=== PATIENT | female | born 1955 | race Asian ===

== ENCOUNTER 2022-08-29 22:55 | Inpatient (IN) | payer OTHER ==
--- OUTSIDE RECORDS SUMMARY | 2022-08-29 22:58 | XMS REPORT | Continuity of Care Document ---
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 Allergies, Adverse Reactions, Alerts This patient has no known allergies or adverse reactions. Social History Social Habit Start Date Stop Date Quantity Comments Source Gender identity Jossue Loza ybold - External Sexual orientation Jossue Honeycuttold - External Alcohol intake 2022-08-12 2022-08-12 Lifetime Jossue Lozadianne bold 00:00:00 00:00:00 non-drinker - External (finding) Tobacco use and 2022-07-22 2022-07-22 Smokeless tobacco Ke sharonda Lozaybold exposure 00:00:00 00:00:00 non-user - External History of Social 2022-07-22 2022-07-22 Jossue Lozaybold function 00:00:00 00:00:00 - External Sex Ass[birth year] Jossue Loza ybold 00:00:00 00:00:00 - External Smoking Status Start Date Stop Date Source Never smoked tobacco Jossue Lzoayb old - External Medications Ordered Filled Start Stop Current Ordering Indication Dosage Frequency Signature Comments Components Source Medication Medication Date Date Medication? Clinician (SIG) Name Name Rosuvastati Yes [id number] 10mg Take 1 Jossue pedroza Calcium 4-07 tablet (10 Seyb old 10 MG oral 00:00: mg total) - Tablet 00 by mouth Externa daily l Losartan 2022- No 50mg Take 1 Jossue Potassium 4-05 04-05 tablet (50 Sey bold (COZAAR) 50 09:36: 00:00 mg total) - MG oral 06 :00 by mouth Externa Tablet daily l Metformin 2022- No 850mg Take 1 Anabel ey HCl 4-05 04-05 tablet Seybold (Glucophage 09:35: 00:00 (850 mg - ) 850 MG 03 :00 total) by Clothing Sales Assistant a oral Tablet mouth in l the morning and 1 tablet (850 mg total) in the evening. Take with meals. Losartan Yes [id number] 1{tbl} Take 1 K elsey Potassium-H 4-05 tablet by Sey bold CTZ 00:00: mouth - 100-12.5 MG 00 daily Externa oral Tablet l Metformin Yes [id number] 1000mg Take 1 Jossue HCl 1000 MG 4-05 tablet Seybol d oral Tablet 00:00: (1,000 mg - 00 total) by Externa mouth in l the morning and 1 tablet (1,000 mg total) in the evening. Take with meals. Losartan Yes [id number] 1{tbl} Take 1 K elsey Potassium-H 4-05 tablet by Sey bold CTZ 00:00: mouth - 100-12.5 MG 00 daily Externa oral Tablet l Metformin Yes [id number] 1000mg Take 1 Jossue HCl 1000 MG 4-05 tablet Seybol d oral Tablet 00:00: (1,000 mg - 00 total) by Externa mouth in l the morning and 1 tablet (1,000 mg total) in the evening. Take with meals. Vital Signs Vital Name Observation Time Observation Value Comments Source Systolic blood 2022-08-12 13:48:00 138 mm[Hg] Jossue Ha - pressure External Diastolic blood 2022-08-12 13:48:00 72 mm[Hg] Bibiana Ha - pressure External Heart rate 2022-08-12 13:48:00 93 /min Jossue nelsonbold - External Body temperature 2022-08-12 13:48:00 36.17 Татьяна Anabel nelson Seybold - External Respiratory rate 2022-08-12 13:48:00 14 /min Anabel ey Seybold - External Body height 2022-08-12 13:48:00 160 cm Jossue Hooper eybold - External Body weight 2022-08-12 13:48:00 47.628 kg Jossue Hooper eybold - External BMI 2022-08-12 13:48:00 18.60 kg/m2 Jossue S eybold - External Systolic blood 2022-07-23 13:57:00 164 mm[Hg] Jossue Seybold - pressure External Diastolic blood 2022-07-23 13:57:00 80 mm[Hg] Atiliose y Seybold - pressure External Heart rate 2022-07-23 13:57:00 77 /min Jossue Hooper eybold - External Body temperature 2022-07-23 13:57:00 36.61 Татьяна Anabel ey Seybold - External Respiratory rate 2022-07-23 13:57:00 16 /min Anabel ey Seybold - External Body height 2022-07-23 13:57:00 160 cm Jossue Hooper eybold - External Body weight 2022-07-23 13:57:00 47.9 kg Jossue Hooper eybold - External BMI 2022-07-23 13:57:00 18.71 kg/m2 Jossue Hooper eybold - External Oxygen saturation in 2022-07-23 13:57:00 99 /min Jossue Ha - Arterial blood by External Pulse oximetry Procedures This patient has no known procedures. Encounters Start End Encounter Admission Attending Care Care Encounter Source Date/Time Date/Time Type Type Clinicians Facility Department ID 2022-11-11 2022-11-11 Outpatient JOSSUE ANTOINE [id number] Jossue 08:30:00 08:30:00 GABRIEL Seybol d 2022-08-29 2022-08-29 Outpatient JOSSUE MAGANA [id number] Jossue 00:00:00 00:00:00 SÁNCHEZ Seybol d 2022-08-22 2022-08-22 Outpatient JOSSUE MAGANA [id number] Jossue 00:00:00 00:00:00 SÁNCHEZ Seybol d 2022-08-12 2022-08-12 Outpatient LAB90 JOSSUE MARCUM [id number] Jossue 09:30:00 09:30:00 Seybol d 2022-08-12 2022-08-12 Outpatient JOSSUE MAGANA [id number] Jossue 08:45:00 08:45:00 SÁNCHEZ Seybol d 2022-07-25 2022-07-25 Outpatient JOSSUE MAGANA [id number] Jossue 00:00:00 00:00:00 SÁNCHEZ Seybol d 2022-07-23 2022-07-23 Outpatient LAB90 JOSSUE MARCUM [id number] Jossue 10:00:00 10:00:00 Seybol d 2022-07-23 2022-07-23 Outpatient JOSSUE MAGANA [id number] Jossue 09:00:00 09:00:00 SÁNCHEZ Seybol d 2022-07-22 2022-07-22 Outpatient JOSSUE MAGANA [id number] Jossue 09:00:00 09:00:00 SÁNCHEZ Seybol d Results This patient has no known results.
[2022-08-29] MEDS ORDERED: ONDANSETRON 4 MG/2 ML VIAL ONE (23:21)
[2022-08-29] MEDS ORDERED: NA CHLORIDE 0.9% 1,000 ML ONE (23:21)
[2022-08-30 01:11] LABS: Absolute Lymphocytes (CBC) 1.8 K/uL (0.7-4.9); Hematocrit 29.1 % (36.0-45.0); Lymphocytes % 17.7 % (15.3-44.8); MCV 84.7 fL (80-100); MPV 7.9 fL (7.6-11.3); RBC Red Blood Cell Count 3.44 M/uL (3.86-4.86)
[2022-08-30 01:22] LABS: Renal Epithelial <5 /HPF (None Seen); Specific Gravity 1.006 (1.005-1.030); Urine Bacteria None Seen /HPF (<20); Urine Bilirubin NEGATIVE (Negative); Urine Blood Negative (Negative); Urine Clarity Clear (Clear); Urine Color Colorless (Yellow); Urine Glucose NEGATIVE (Negative); Urine Mucus Slight /HPF (None Seen); Urine Protein NEGATIVE (Negative); Urine RBC <5 /HPF (None Seen); Urine Urobilinogen Normal (Normal); Urine pH 5.5 (5.0-7.0)
[2022-08-30 01:22] LABS: Albumin 3.7 g/dL (3.4-5.0); Bilirubin Total 0.3 mg/dL (0.2-1.0); Potassium 4.5 mEq/L (3.5-5.1); Protein, Total 8.1 g/dL (6.4-8.2); Troponin High Sensitivity 8.2 pg/mL (<58.9)
--- NOTE | 2022-08-30 03:20 | EDPHYS ---
Physician Documentation [facility] Name: Adriana Day Age: 66 yrs Sex: Female : 1955 Arrival Date: 08/29/2022 Time: 22:55 Bed 20 Private MD: ED Physician Shamir Al HPI: 08/29 23:41 This 66 yrs old Female presents to ER via Ambulatory with complaints of rn Nausea/Vomiting, High Blood Pressure. 23:41 The patient presents to the emergency department with nausea, vomiting. Onset: The rn symptoms/episode began/occurred 3 day(s) ago. Possible causes: unknown. The symptoms are aggravated by nothing. The symptoms are alleviated by food . Associated signs and symptoms: Pertinent positives: nausea, vomiting, Pertinent negatives: abdominal pain, diarrhea, fever, GI bleeding. Severity of symptoms: At their worst the symptoms were moderate in the emergency department the symptoms are unchanged. The patient has not experienced similar symptoms in the past. The patient has not recently seen a physician. Family reports nausea/vomiting for 3 days, assoc with palpitations and heart racing. No fever. No blood in stool. No dark stool. No hematemesis. . Historical: - Allergies: 23:16 No Known Allergies; aa9 - PMHx: 23:16 Hypertensive disorder; aa9 - PSHx: 23:16 None; aa9 - Immunization history:: Client reports receiving the 2nd dose of the Covid vaccine. - Social history:: Smoking status: Patient denies any tobacco usage or history of. - Family history:: not pertinent. - Hospitalizations: : No recent hospitalization is reported. ROS: 23:41 Constitutional: Negative for fever, chills, and weight loss, Eyes: Negative for injury, rn pain, redness, and discharge, Neck: Negative for injury, pain, and swelling, Cardiovascular: Negative for chest pain, palpitations, and edema, Respiratory: Negative for shortness of breath, cough, wheezing, and pleuritic chest pain, Abdomen/GI: + nausea/vomiting Back: Negative for injury and pain, MS/Extremity: Negative for injury and deformity, Skin: Negative for injury, rash, and discoloration, Neuro: Negative for headache, weakness, numbness, tingling, and seizure. Exam: 23:41 Constitutional: This is a well developed, well nourished patient who is awake, alert, rn and in no acute distress. Ambulatory to room without difficulty. Head/Face: Normocephalic, atraumatic. Eyes: Pupils equal round and reactive to light, extra-ocular motions intact. Lids and lashes normal. Conjunctiva and sclera are non-icteric and not injected. Cornea within normal limits. Periorbital areas with no swelling, redness, or edema. Neck: Trachea midline, no masses palpated, and no cervical lymphadenopathy. Supple, full range of motion without nuchal rigidity, or vertebral point tenderness. No Meningismus. Cardiovascular: Regular rate and rhythm. No pulse deficits. Respiratory: Lungs have equal breath sounds bilaterally, clear to auscultation. No rales, rhonchi or wheezes noted. No increased work of breathing, no retractions or nasal flaring. Abdomen/GI: soft, non-tender Skin: Warm, dry MS/ Extremity: Pulses equal, no cyanosis. Neuro: Awake and alert, GCS 15, oriented to person, place, time, and situation. Cranial nerves II-XII grossly intact. Motor strength 5/5 in all extremities. Sensory grossly intact. Cerebellar exam normal. Normal gait. 08/30 00:15 ECG was reviewed by the Attending Physician. rn Vital Signs: 08/29 23:15 BP 199 / 69; Pulse 73; Resp 18; Temp 98.8; Pulse Ox 100% on R/A; aa9 23:17 Weight 45.36 kg (R); Height 5 ft. 4 in. (R); aa9 23:35 BP 185 / 58; Pulse 71; Resp 18; Pulse Ox 100% ; aa9 23:53 BP 182 / 65; Pulse 68; Resp 17 S; Pulse Ox 100% ; aa9 08/30 00:50 BP 148 / 55; Pulse 65; Resp 18 S; Pulse Ox 100% ; aa9 01:00 BP 160 / 62; Pulse 65; Resp 17 S; Pulse Ox 100% ; aa9 01:15 BP 150 / 63; Pulse 66; Resp 17 S; Pulse Ox 100% ; aa9 02:12 BP 141 / 48; Pulse 75; Pulse Ox 98% ; vc1 08/29 23:17 Body Mass Index 17.16 (45.36 kg, 162.56 cm) aa9 MDM: 08/29 23:03 Patient medically screened. rn 08/30 03:18 Differential diagnosis: Nonspecific abd pain, gastritis, cholecystitis, pancreatitis, rn appendicitis, diverticulitis, viral gastroenteritis, gastroenteritis. Data reviewed: vital signs, nurses notes, lab test result(s), radiologic studies, CT scan, and as a result, I will admit patient. Consideration of Admission/Observation Patient was admitted/placed on observation. Escalation of care including admission/observation considered. Management of patient was discussed with the following: Hospitalist: . I considered the following discharge prescriptions or medication management in the emergency department Medications were administered in the Emergency Department. See MAR. Counseling: I had a detailed discussion with the patient and/or guardian regarding: the historical points, exam findings, and any diagnostic results supporting the discharge/admit diagnosis, lab results, radiology results, the need for further work-up and treatment in the hospital. Response to treatment: the patient's symptoms have mildly improved after treatment, and as a result, I will admit patient. 08/29 23:13 Order name: Basic Metabolic Panel rn 08/29 23:13 Order name: CBC with Diff; Complete Time: 01:23 08/29 23:13 Order name: NT PRO-BNP; Complete Time: 01:23 08/29 23:13 Order name: Troponin HS; Complete Time: : 08/29 23:13 Order name: CMP; Complete Time: 01:23 rn 08/29 23:13 Order name: Lipase; Complete Time: 01:23 rn 08/29 23:13 Order name: Urinalysis w/ reflexes; Complete Time: 01:23 08/29 23:13 Order name: Flu; Complete Time: 00:14 rn 08/29 23:13 Order name: COVID-19 SARS RT PCR; Complete Time: 00:14 rn 08/29 23:13 Order name: XRAY Chest (1 view) rn 08/29 23:13 Order name: CT Aorta for Dissection rn 08/29 23:13 Order name: CT Head Brain wo Cont rn 08/29 23:13 Order name: EKG; Complete Time: 23:14 rn 08/29 23:13 Order name: Cardiac monitoring; Complete Time: 23:34 rn 08/29 23:13 Order name: EKG - Nurse/Tech; Complete Time: 00:15 rn 08/29 23:13 Order name: IV Saline Lock; Complete Time: 23:44 rn 08/29 22: Order name: Labs collected and sent; Complete Time: :34 rn 08/29 22: Order name: O2 Per Protocol; Complete Time: rn 08/29 22: Order name: O2 Sat Monitoring; Complete Time: :34 rn EC:15 Rate is 72 beats/min. Rhythm is regular. QRS [place] is Normal. MS interval is normal. QRS rn interval is normal. QT interval is normal. No Q waves. T waves are Normal. No ST changes noted. Clinical impression: Normal ECG. Interpreted by me. Reviewed by me. Administered Medications: 08/29 23:44 Drug: NS 0.9% IV 1000 ml Route: IV; Rate: 1 bolus; Site: left hand; aa9 08/30 03:40 Follow up: Response: No adverse reaction; IV Status: Completed infusion; IV Intake: aa9 1000ml 08/29 23:44 Drug: Ondansetron IVP 4 mg Route: IVP; Site: left hand; aa9 08/30 03:40 Follow up: Response: No adverse reaction aa9 03:32 Drug: Pantoprazole IVP 40 mg Route: IVP; Site: left upper arm; aa9 03:40 Follow up: Response: No adverse reaction aa9 Disposition Summary: 08/30/22 03:20 Hospitalization Ordered Hospitalization Status: Observation rn Provider: Ross Lopez rn Condition: Stable rn Problem: new rn Symptoms: have improved rn Bed/Room Type: Standard rn Location: Intensive Care Unit(08/30/22 03:39) cg Room Assignment: 3-(08/30/22 03:39) cg Diagnosis - Vomiting, unspecified rn - Dehydration rn - Hypo-osmolality and hyponatremia rn - Infectious gastroenteritis and colitis, unspecified rn Forms: - Medication Reconciliation Form rn - SBAR form rn Signatures: Dispatcher [employer] EDShamir Olvera MD MD rn Attema, Lee, FNP-C FNP-Annamaria Mccauley RN RN Alexandrea Hannah RN RN aa9 Corrections: (The following items were deleted from the chart) 03:39 03:20 Telemetry/MedSurg (observation) rn cg 03:39 03:20 rn cg
--- NOTE | 2022-08-30 03:20 | ER ---
Nurse's Notes [facility] Name: Adriana Day Age: 66 yrs Sex: Female : 1955 Arrival Date: 08/29/2022 Time: 22:55 Bed 20 Private MD: Diagnosis: Vomiting, unspecified;Dehydration;Hypo-osmolality and hyponatremia;Infectious gastroenteritis and colitis, unspecified Presentation: 08/29 23:15 Chief complaint: Patient states: vomiting the last three days, high blood pressure and aa9 fatigue. Coronavirus screen: Vaccine status: Patient reports receiving the 2nd dose of the covid vaccine. pfizer. Ebola Screen: No symptoms or risks identified at this time. Initial Sepsis Screen: Does the patient meet any 2 criteria? No. Patient's initial sepsis screen is negative. Does the patient have a suspected source of infection? No. Patient's initial sepsis screen is negative. Risk Assessment: Do you want to hurt yourself or someone else? Patient reports no desire to harm self or others. Onset of symptoms was August 29, 2022. 23:15 Method Of Arrival: Ambulatory aa9 23:15 Acuity: JESSICA 2 aa9 Triage Assessment: 23:16 General: Appears uncomfortable, slender, Behavior is calm, cooperative. Neuro: Level of aa9 Consciousness is awake, alert, obeys commands, Oriented to person, place, time, situation. Cardiovascular: Patient's skin is warm and dry. Respiratory: Airway is patent Respiratory effort is even, unlabored. GI: Reports nausea, vomiting, Patient currently denies diarrhea. : No signs and/or symptoms were reported regarding the genitourinary system. Derm: Skin is intact, is fragile, is thin. Historical: - Allergies: 23:16 No Known Allergies; aa9 - PMHx: 23:16 Hypertensive disorder; aa9 - PSHx: 23:16 None; aa9 - Immunization history:: Client reports receiving the 2nd dose of the Covid vaccine. - Social history:: Smoking status: Patient denies any tobacco usage or history of. - Family history:: not pertinent. - Hospitalizations: : No recent hospitalization is reported. Screenin:54 Abuse screen: Denies threats or abuse. Denies injuries from another. aa9 08/30 02:55 [facility] ED Fall Risk Assessment (Adult) History of falling in the last 3 months, kd3 including since admission No falls in past 3 months (0 pts) Confusion or Disorientation No (0 pts) Intoxicated or Sedated No (0 pts) Impaired Gait No (0 pts) Mobility Assist Device Used No (0 pt) Altered Elimination No (0 pt) Score/Fall Risk Level 0 - 2 = Low Risk Oriented to surroundings, Maintained a safe environment, Assessed \T\ reinforced patient's understanding of fall precautions. Nutritional screening: Has had N/V for 3 or more days. Tuberculosis screening: No symptoms or risk factors identified. Assessment: 08/29 23:35 General: Appears in no apparent distress. uncomfortable, Behavior is calm, cooperative. [facility] 23:56 Reassessment: Patient appears in no apparent distress at this time. Patient and/or [facility] family updated on plan of care and expected duration. Pain level reassessed. Patient is alert, oriented x 3, equal unlabored respirations, skin warm/dry/pink. Lesli RN at bedside attempting IV site and blood recollection. Pain: Denies pain. Cardiovascular: Patient's skin is warm and dry. Respiratory: Airway is patent Respiratory effort is even, unlabored. GI: Reports nausea, Patient currently denies diarrhea. Derm: Skin is intact, is fragile, is thin. 08/30 00:15 Reassessment: Patient appears in no apparent distress at this time. Lotus MATTSON at [facility] bedside attempting IV insertion and blood recollection. 00:32 Reassessment: Patient appears in no apparent distress at this time. Mark Dunham at [facility] bedside attempting IV insertion and blood recollection. 01:26 Reassessment: Patient appears in no apparent distress at this time. Patient and/or 3 family updated on plan of care and expected duration. Pain level reassessed. Patient is alert, oriented x 3, equal unlabored respirations, skin warm/dry/pink. 02:40 Reassessment: Patient appears in no apparent distress at this time. Patient and/or 3 family updated on plan of care and expected duration. Pain level reassessed. Patient is alert, oriented x 3, equal unlabored respirations, skin warm/dry/pink. 03:39 Reassessment: Patient appears in no apparent distress at this time. pt ambulated to [facility] restroom independently. 03:45 Reassessment: Patient appears in no apparent distress at this time. attempted to call aa9 report. Vital Signs: 08/29 23:15 BP 199 / 69; Pulse 73; Resp 18; Temp 98.8; Pulse Ox 100% on R/A; aa9 23:17 Weight 45.36 kg (R); Height 5 ft. 4 in. (R); aa9 23:35 BP 185 / 58; Pulse 71; Resp 18; Pulse Ox 100% ; aa9 23:53 BP 182 / 65; Pulse 68; Resp 17 S; Pulse Ox 100% ; aa9 08/30 00:50 BP 148 / 55; Pulse 65; Resp 18 S; Pulse Ox 100% ; aa9 01:00 BP 160 / 62; Pulse 65; Resp 17 S; Pulse Ox 100% ; aa9 01:15 BP 150 / 63; Pulse 66; Resp 17 S; Pulse Ox 100% ; aa9 02:12 BP 141 / 48; Pulse 75; Pulse Ox 98% ; vc1 08/29 23:17 Body Mass Index 17.16 (45.36 kg, 162.56 cm) aa9 ED Course: 08/29 22:59 Patient arrived in ED. jj6 23:03 Shamir Al MD is Attending Physician. rn 23:12 Alexandrea Harrison, TWILA is Primary Nurse. aa9 23:16 Triage completed. aa9 23:17 Arm band placed on right wrist. aa9 23:30 Missed attempt(s): 20 gauge in right antecubital area. Bleeding controlled, band aid aa9 applied, catheter tip intact. 23:34 COVID-19 SARS RT PCR Sent. aa9 23:34 Flu Sent. aa9 23:34 CMP Sent. aa9 23:34 Lipase Sent. aa9 23:34 Urinalysis w/ reflexes Sent. aa9 23:35 CBC with Diff Sent. aa9 23:35 NT PRO-BNP Sent. aa9 23:35 Troponin HS Sent. aa9 23:41 XRAY Chest (1 view) In Process Unspecified. EDMS 23:45 Flu Sent. aa9 23:45 COVID-19 SARS RT PCR Sent. aa9 23:45 Inserted saline lock: 22 gauge in left hand, using aseptic technique. aa9 08/30 01:21 CMP Sent. aa9 01:21 Lipase Sent. aa9 02:16 CT Aorta for Dissection In Process Unspecified. EDMS 02:16 CT Head Brain wo Cont In Process Unspecified. EDMS 02:47 Basic Metabolic Panel Sent. kd3 02:55 Patient has correct armband on for positive identification. Placed in gown. Bed in low kd3 position. Side rails up X2. Adult w/ patient. Pulse ox on. NIBP on. 03:19 Ross Lopez MD is Hospitalizing Provider. rn 03:39 No provider procedures requiring assistance completed. Patient admitted, IV remains in aa9 place. Administered Medications: 08/29 23:44 Drug: NS 0.9% IV 1000 ml Route: IV; Rate: 1 bolus; Site: left hand; aa9 08/30 03:40 Follow up: Response: No adverse reaction; IV Status: Completed infusion; IV Intake: aa9 1000ml 08/29 23:44 Drug: Ondansetron IVP 4 mg Route: IVP; Site: left hand; aa9 08/30 03:40 Follow up: Response: No adverse reaction aa9 03:32 Drug: Pantoprazole IVP 40 mg Route: IVP; Site: left upper arm; aa9 03:40 Follow up: Response: No adverse reaction aa9 Medication: 03:39 VIS not applicable for this client. aa9 Intake: 03:40 IV: 1000ml; Total: 1000ml. aa9 Outcome: 03:20 Decision to Hospitalize by Provider. rn 03:39 Condition: stable aa9 04:06 Admitted to ICU accompanied by nurse, room 3, with chart, Report called to grayson aa9 04:06 Instructed on the need for admit. 04:06 Patient left the ED. aa9 Signatures: Dispatcher [employer] EDShamir Olvera MD MD rn Jeffries, Jennifer [id number] Negrita Mckee RN RN kd3 Lotus Cullen RN RN vc1 Alexandrea Harrison RN RN aa9 Corrections: (The following items were deleted from the chart) 00:34 00:32 Reassessment: Patient appears in no apparent distress at this time. Mark Dunham at aa9 bedside attempting IV insertion and blood recollection aa9
--- NOTE | 2022-08-30 03:33 | P.HP ---
Certification for Inpatient Patient admitted to: Inpatient With expected LOS: >2 Midnights Patient will require the following post-hospital care: None Practitioner: I am a practitioner with admitting privileges, knowledge of patient current condition, hospital course, and medical plan of care. Services: Services provided to patient in accordance with Admission requirements found in Title 42 Section 412.3 of the Code of Federal Regulations Patient History Date of Service: 08/30/22 Reason for admission: Hypernatremia History of Present Illness: 66-year-old female with history of hypertension, tjq-hdyvaew-wdrnvybrk diabetes presents emerged department chief complaint of nausea/vomiting for the last 3 days. She was evaluated in the emergency department her labs are significant for hyponatremia sodium 121 chloride 90 creatinine 1.35 GFR 43 glucose 130 lipase 198 hemoglobin 10.2 hematocrit 29.1. Abdomen nontender on exam CT aorta for dissection performed which revealed thickening of the stomach, proximal small intestine suggestive of gastroenteritis. She was given IV fluids in ED, ED provider wishes to admit for further evaluation and management of nausea/vomiting/hyponatremia. - Past Medical/Surgical History -: Hypertension -: diabetes mellitus type [id number]-[id number] -: none Psychosocial/ Personal History: Lives at home with her daughters - Family History Family History: Reviewed- Non-Contributory - Social History Smoking Status: Never smoker Alcohol use: No CD- Drugs: No Caffeine use: Yes Place of Residence: Home Review of Systems 10-point ROS is otherwise unremarkable Gastrointestinal: Nausea, Vomiting, Abdominal Pain Physical Examination - Physical Exam General: Alert, In no apparent distress, Oriented x3 HEENT: Atraumatic, PERRLA, Mucous membr. moist/pink, EOMI, Sclerae nonicteric Neck: Supple, 2+ carotid pulse no bruit, No LAD, Without JVD or thyroid ab normality Respiratory: Clear to auscultation bilaterally, Normal air movement Cardiovascular: Regular rate/rhythm, Normal S1 S2 Capillary refill: <2 Seconds Gastrointestinal: Normal bowel sounds, No tenderness Musculoskeletal: No tenderness Integumentary: No rashes Neurological: Normal gait, Normal speech, Normal strength at 5/5 x4 extr, Normal tone, Normal affect - Studies Laboratory Data (last 24 hrs) 08/30/22 00:55: WBC 10.40, Hgb 10.2 L, Hct 29.1 L, Plt Count 259 08/30/22 00:55: Sodium 121 L, Potassium 4.5, BUN 33 H, Creatinine 1.35 H, Glucose 130 H, Total Bilirubin 0.3, AST 21, ALT 23, Alkaline Phosphatase 93, Lipase 198 H Microbiology Data (last 24 hrs): 08/29/22 22:29 Nasopharnyx Influenza Type A Antigen Screen - Final 08/29/22 22:29 Nasopharnyx Influenza Type B Antigen Screen - Final Assessment and Plan - Plan Assessment: Nausea/vomiting secondary to enteritis Moderate hyponatremiasuspect hypovolemic Hypertension diabetes mellitus type [id number] Plan: Nausea/vomiting secondary to enteritis Clear liquid diet, gentle IV fluids, recheck sodium later today. We will treat with Protonix patient complaining of reflux-like symptoms with nausea/vomiting. Moderate hyponatremiasuspect hypovolemic Continue gentle IV fluids, monitor chemistry closely. Suspect hypovolemic related to nausea/vomiting for last 3 days. Hypertension Obtain and continue home medications as appropriate, hold any diuretics/HCTZ if patient is taking. diabetes mellitus type [id number]-anvyxynzs ACHS Accu-Chek, sliding scale insulin. DVT PPX: Lovenox Code status:full Discharge Plan: Home Plan to discharge in: 48 Hours - Advance Directives Does patient have a Living Will: No Does patient have a Durable POA for Healthcare: No - Code Status/Comfort Care Code Status Assessed: Yes (full code) Critical Care: No Time Spent Managing Pts Care (In Minutes): 55
[2022-08-30] MEDS ORDERED: PANTOPRAZOLE 40 MG INJ ONE (03:34)
[2022-08-30] MEDS ORDERED: SODIUM CHLORIDE 0.9% 10ML INJ IV PRN (03:58)
[2022-08-30] MEDS ORDERED: ONDANSETRON 4 MG/2 ML VIAL IV PRN (03:58)
[2022-08-30] MEDS ORDERED: NA CHLORIDE 0.9% 1,000 ML IV SCH ×2 (04:00→23:45)
[2022-08-30 05:40] LABS: UR SODIUM 43 mmol/L (27-287)
[2022-08-30 05:41] LABS: UR POTASSIUM < 6.0 mmol/L (20-40)
[2022-08-30 06:22] LABS: Potassium 4.2 mEq/L (3.5-5.1); Thyroid Stimulating Hormone 0.634 uIU/mL (0.358-3.740)
[2022-08-30 06:34] LABS: Magnesium 1.6 mg/dL (1.6-2.4)
[2022-08-30] MEDS: INSULIN -REGULAR HUMAN 50 UNIT/0.5 ML ML SQ SCH ×4 (07:30→20:28)
[2022-08-30] MEDS ORDERED: PANTOPRAZOLE 40 MG INJ IVP SCH (09:00)
[2022-08-30] MEDS ORDERED: MAGNESIUM SULFATE 1 gm IVPB 1 GM/100 ML BAG IV ONE (09:00)
[2022-08-30] MEDS: ENOXAPARIN 30 MG/0.3 ML SQ SCH (09:02)
[2022-08-30 12:56] LABS: Potassium 4.7 mEq/L (3.5-5.1)
[2022-08-30] MEDS ORDERED: NACHLORIDE 0.45% 1,000 ML IV SCH (14:16)
[2022-08-30 17:27] LABS: Magnesium 2.2 mg/dL (1.6-2.4); Phosphorus 3.4 mg/dL (2.5-4.9); Potassium 4.5 mEq/L (3.5-5.1)
[2022-08-30 17:38] LABS: Thyroid Stimulating Hormone 0.717 uIU/mL (0.358-3.740); Uric Acid 7.7 mg/dL (2.6-6.0)
[2022-08-30] MEDS ORDERED: DESMOPRESSIN 4 MCG/ML AMP IV ONE (17:58)
[2022-08-30] MEDS ORDERED: D5W 1,000 ML IV SCH (18:00)
[2022-08-30 18:55] LABS: Specific Gravity 1.017 (1.005-1.030); Urine Bilirubin NEGATIVE (Negative); Urine Blood Negative (Negative); Urine Clarity Clear (Clear); Urine Color Colorless (Yellow); Urine Glucose NEGATIVE (Negative); Urine Protein NEGATIVE (Negative); Urine Urobilinogen Normal (Normal); Urine pH 5.5 (5.0-7.0)
--- NOTE | 2022-08-30 19:06 | RAD REPORT ---
EXAM DESCRIPTION: US - Renal Ultrasound-Complete - 08/30/2022 6:56 pm CLINICAL HISTORY: renal failure COMPARISON: No comparisons FINDINGS: Both kidneys are normal in size, shape and echotexture. The right kidney measures 8.3 cm. No hydronephrosis, focal mass or perinephric fluid. The left kidney measures 8.4 cm. No hydronephrosis, focal mass or perinephric fluid. The urinary bladder is incompletely distended without gross abnormality seen. IMPRESSION: Unremarkable renal sonogram. No evidence of hydronephrosis.
[2022-08-30 23:32] LABS: Potassium 4.1 mEq/L (3.5-5.1)
[2022-08-30] MEDS ORDERED: SODIUM CHLORIDE 1 GM TAB PO ONE (23:42)
[2022-08-31] MEDS: ACETYLCYST 20% 800 MG/4 ML VIAL PO SCH ×3 (00:04→20:04)
[2022-08-31 04:54] VITALS: BMI 18.5
[2022-08-31 05:02] LABS: Absolute Lymphocytes (CBC) 2.5 K/uL (0.7-4.9); Hematocrit 24.9 % (36.0-45.0); Lymphocytes % 32.6 % (15.3-44.8); MCV 85.3 fL (80-100); RBC Red Blood Cell Count 2.92 M/uL (3.86-4.86)
[2022-08-31 05:14] LABS: Magnesium 1.8 mg/dL (1.6-2.4); Potassium 3.9 mEq/L (3.5-5.1)
[2022-08-31] MEDS ORDERED: MAGNESIUM SULFATE 1 gm IVPB 1 GM/100 ML BAG IV ONE (05:42)
[2022-08-31] MEDS ORDERED: POTASSIUM CL SA 10 MEQ TAB PO ONE (05:42)
[2022-08-31] MEDS ORDERED: SODIUM CHLORIDE 1 GM TAB PO ONE ×2 (06:27→16:00)
[2022-08-31] MEDS: INSULIN -REGULAR HUMAN 50 UNIT/0.5 ML ML SQ SCH ×4 (07:30→20:01)
[2022-08-31] MEDS: ENOXAPARIN 30 MG/0.3 ML SQ SCH (08:06)
[2022-08-31] MEDS: PANTOPRAZOLE 40 MG INJ IVP SCH (08:07)
[2022-08-31] MEDS: SODIUM CHLORIDE 1 GM TAB PO ONE (08:07)
--- NOTE | 2022-08-31 10:03 | P.DS ---
Admission Date: 08/30/22 Discharge Date: 08/31/22 Disposition: ROUTINE DISCHARGE Discharge Condition: FAIR Reason for Admission: Hyponatremia diarrhea vomiting Brief History of Present Illness: Patient is 66 years of age admitted with nausea vomiting diarrhea hyponatremia Hospital Course: Admitted to the of the hospital did well her creatinine did increase suspect is from the contrast at the time of discharge patient was tolerating a diet no new complaints patient does not speak any Comoran continues to remain mildly hyponatremic on her home medication I stopped her hydrochlorothiazide patient is on losartan and hydrochlorothiazide at home have basic chemistry checked in a week also mildly anemic probably from her underlying chronic renal failure CT scan shows nonspecific enteritis ultrasound of the kidneys was normal vital signs stable at discharge chest clear abdomen soft oxygenation satisfactory Vital Signs/Physical Exam: Temp Pulse Resp BP Pulse Ox 97.1 F 62 18 142/55 H 98 08/30/22 20:00 08/31/22 04:00 08/31/22 04:00 08/31/22 04:00 08/30/22 20:00 Laboratory Data at Discharge: WBC 7.60 thou/uL (4.3-10.9) 08/31/22 04:45 Hgb 8.7 g/dL (12.0-15.0) L D 08/31/22 04:45 Hct 24.9 % (36.0-45.0) L 08/31/22 04:45 Plt Count 212 thou/uL (152-406) 08/31/22 04:45 Sodium 124 mEq/L (136-145) L 08/31/22 04:45 Potassium 3.9 mEq/L (3.5-5.1) 08/31/22 04:45 BUN 25 mg/dL (7-18) H 08/31/22 04:45 Creatinine 1.43 mg/dL (0.55-1.02) H 08/31/22 04:45 Glucose 97 mg/dL (74-106) 08/31/22 04:45 Uric Acid 7.7 mg/dL (2.6-6.0) H 08/30/22 16:58 Phosphorus 3.4 mg/dL (2.5-4.9) 08/30/22 16:58 Magnesium 1.8 mg/dL (1.6-2.4) 08/31/22 04:45 Total Bilirubin 0.3 mg/dL (0.2-1.0) 08/30/22 00:55 AST 21 U/L (15-37) 08/30/22 00:55 ALT 23 U/L (13-56) 08/30/22 00:55 Alkaline Phosphatase 93 U/L (45-117) 08/30/22 00:55 Lipase 151 U/L (13-75) H 08/31/22 04:45 Home Medications: Losartan/Hydrochlorothiazide [Losartan-Hctz 100-12.5 mg Tab] 1 each PO DAILY 08/30/22 Metformin HCl [Glucophage*] 1,000 mg PO BIDWM 08/30/22 Rosuvastatin Calcium [Crestor] 10 mg PO DAILY 08/30/22 Physician Discharge Instructions: Patient follow-up with her primary care physician hydrochlorothiazide discontinued patient to restrict fluid intake have another chemistry checked in a week and is also mildly anemic needs a follow-up Diet: Regular Activity: Ad lm Followup: Mili Murcia MD [Primary Care Provider] -
[2022-08-31 13:23] LABS: Phosphorus 2.4 mg/dL (2.5-4.9); Potassium 4.4 mEq/L (3.5-5.1)
--- NOTE | 2022-08-31 14:45 | EKG ---
Test Date: 2022-08-30 Test Time: 00:12:57 Sewer Tapper: JOSELYN MEASUREMENT RESULTS: Intervals: Rate: 72 VT: 172 QRSD: 82 QT: 392 QTc: 429 [place]: P: 67 VT: 172 QRS: 75 T: 73 INTERPRETIVE STATEMENTS: Normal sinus rhythm Normal ECG No previous ECG available for comparison Electronically Signed On 08-31-22 14:43:38 CDT by Luis Harrington
[2022-08-31] MEDS: NA CHLORIDE 0.9% 1,000 ML IV SCH ×2 (15:25→19:03)
[2022-08-31 15:46] LABS: Potassium 4.5 mEq/L (3.5-5.1)
[2022-08-31] MEDS ORDERED: SODIUM CHLORIDE 1 GM TAB PO SCH (17:00)
[2022-08-31 18:52] LABS: Potassium 4.1 mEq/L (3.5-5.1)
[2022-08-31 23:24] LABS: Potassium 4.2 mEq/L (3.5-5.1)
[2022-08-31] MEDS ORDERED: NA CHLORIDE 0.9% 1,000 ML IV SCH (23:43)
[2022-08-31] MEDS ORDERED: POTASS/SODIUM PHOSPHATE 1 PKT POWD.PACK PO ONE (23:45)
[2022-09-01] MEDS: MELATONIN 5 MG TABLET PO PRN (00:22)
[2022-09-01] MEDS: AMLODIPINE 2.5 MG TAB PO SCH ×2 (00:22→09:05)
--- NOTE | 2022-09-01 00:57 | CON ---
Date of Consultation: 08/31/2022 Chief Complaint: Hyponatremia. History Of Present Illness: Patient is admitted to ICU because of severe hyponatremia. Sodium level was 121. Patient has history of diabetes mellitus. Her glucose level was 130. The patient is a 66 -year-old woman with history of hypertension, zcu-dacvoyx-yqgomsqcr diabetes mellitus. She came to [facility] because of nausea and vomiting for last 3 days. She was evaluated in the emergency room, was found to have significant hyponatremia. Sodium level was 121, chloride 90, creatinine 1.35, and GFR 43, glucose 130, lipase 198. Hemoglobin level was 10.2. Patient underwent workup in the emerge ncy room and CT scan of the aorta with IV contrast to rule out dissection was done and it showed thic kening of the stomach, proximal small intestine suggestive for gastroenteritis. The patient was star jeaneth on IV fluids in the emergency room and sodium level improved from 121 to 128, and Nephrology cons ultation was requested for decreased urine output as well as presence of hyponatremia. The patient h as history of diabetes mellitus and was taking metformin. Metformin currently is on hold due to acut e on chronic kidney injury. She was treated for hypertension with losartan and HCTZ. Past Medical History: Hypertension; diabetes mellitus type 2, non-insulin dependent. Family History: Noncontributory. Social History: Denies tobacco, alcohol, recreational drugs. Review of Systems: The patient was complaining of nausea, vomiting, abdominal pain. Currently she denies any complaints . She was medicated for pain. Further review of systems is unremarkable. Physical Examination: General: The patient is alert, oriented. HEENT: Atraumatic, normocephalic. Neck: Supple. No JVD. No bruits. Lungs: Clear to auscultation bilaterally. Heart: S1, S2. Abdomen: Soft, benign. Extremities: No edema. Neurologic: Moving extremities. Cranial nerves intact. Laboratory Data: Sodium 121, potassium 4.5, BUN 33, creatinine 1.35, glucose 130, total bilirubin 0. 3, AST 21, ALT 23, ALP is 93. Impression And Plan: 1.Nausea and vomiting due to enteritis, moderately severe hyponatremia. The patient was treated wit h normal saline for presumptive hypovolemia. Sodium level has improved to 128 with overly a rapid ov ercorrection and IV fluids were changed to D5W. Sodium level has not responded to D5W. Patient rece ived DDAVP. Subsequently, sodium level has dropped and patient was treated with normal saline as wel l as sodium chloride tablets. Plan is to now monitor renal panel and adjust treatment accordingly. The patient is asymptomatic. 2.The patient developed hyponatremia in setting of hypovolemia and of note, she was taking HCTZ. Sh e denies nonsteroidal anti-inflammatory medication. Hyponatremia in this particular patient is multi factorial and patient cannot take HCTZ due to risk of worsening of the hyponatremia. 3.Diabetes mellitus. Monitor blood glucose and continue to adjust insulin as needed. 4.Prerenal azotemia, status post IV contrast exposure. Continue normal saline and Mucomyst. EB/MODL Voice ID: [id number] Report ID: [id number]
[2022-09-01] MEDS: HYDRALAZINE HCL 20 MG/ML VIAL IV PRN (04:01)
[2022-09-01 04:53] LABS: Absolute Lymphocytes (CBC) 1.7 K/uL (0.7-4.9); Hematocrit 25.8 % (36.0-45.0); Lymphocytes % 21.3 % (15.3-44.8); MCV 83.3 fL (80-100); MPV 8.4 fL (7.6-11.3)
[2022-09-01 05:13] LABS: Magnesium 1.4 mg/dL (1.6-2.4)
[2022-09-01] MEDS ORDERED: Magnesium Sulfate 2gm IVPB 2 G/50 ML BAG IV ONE (06:22)
[2022-09-01] MEDS: INSULIN -REGULAR HUMAN 50 UNIT/0.5 ML ML SQ SCH ×4 (07:30→21:00)
[2022-09-01] MEDS: PANTOPRAZOLE 40 MG INJ IVP SCH (09:05)
[2022-09-01] MEDS: ENOXAPARIN 30 MG/0.3 ML SQ SCH (09:06)
[2022-09-01] MEDS: SODIUM CHLORIDE 1 GM TAB PO ONE (09:06)
[2022-09-01] MEDS: ACETYLCYST 20% 800 MG/4 ML VIAL PO SCH ×2 (09:07→22:08)
[2022-09-01] MEDS ORDERED: SODIUM CHLORIDE 1 GM TAB PO ONE ×4 (09:30→23:38)
--- NOTE | 2022-09-01 10:54 | P.PN ---
Subjective Date of Service: 09/01/22 Chief Complaint: Hyponatremia diarrhea vomiting Ms. Adriana Day is Latvian-speaking only. The following history was obtained with the assistance of [employer] certified Latvian-Greek dye and chemical coordinator, Ms. Shaffer, (ID# [id number]). No acute events overnight. She states that she feels relatively well this morning. She has been experiencing some bilateral lower extremity cramping. She denies any headaches, dizziness, lightheadedness, chest pain, palpitations, or shortness of breath. Review of Systems 10-point ROS is otherwise unremarkable Musculoskeletal: Leg Pain (cramps) Physical Examination - Vital Signs Temperature: 98.0 F Blood Pressure: 185/73 Pulse: 77 Respirations: 18 Pulse Ox (%): 98 - Physical Exam General: Alert, In no apparent distress, Oriented x3 HEENT: Atraumatic, Mucous membr. moist/pink, EOMI, Sclerae nonicteric Neck: JVD not distended Respiratory: Clear to auscultation bilaterally, Normal air movement Cardiovascular: No edema, Regular rate/rhythm, Normal S1 S2, No gallops, No rubs, No murmurs Gastrointestinal: Normal bowel sounds, Soft and benign, Non-distended, No tenderness, No rebound, No guarding Musculoskeletal: No clubbing Integumentary: No rashes, Other (leg cramping) Neurological: Normal speech, Normal affect Assessment And Plan - Plan # Hypovolemic Hyponatremia secondary to Acute Gastroenteritis and Hydrochlorothiazide Use She was treated with IV fluids and had rapid improvement in her sodium levels. Nephrology was consulted and, to prevent central pontine myelinolysis, she was given desmopressin. Her sodium is now persistently low. - Radiology: - Chest x-ray = " no acute cardiopulmonary abnormality." - CT head = " no acute intracranial abnormality by CT criteria." - CT aorta dissection protocol = "1. No evidence of aortic dissection or aneurysm. No pulmonary embolus. 2. Wall thickening of the stomach and proximal small bowel. These findings could be seen with nonspecific gastroenteritis. 3. Coronary artery atherosclerosis. 4. Hepatic steatosis. 5. Diverticulosis without evidence of acute diverticulitis." - Nephrology consulted and she was evaluated by Dr. Merino - recommendations appreciated - Sodium trend: 121 -> 125 -> 126 -> 128 -> 125 -> 124 -> 122 -> 121 -> 122 -> 121 -> 120 - IV fluids per Nephrology - Serial BMP # Hypertensive Urgency - Nephrology consulted - recommendations appreciated - Continue amlodipine, PRN hydralazine # KDIGO Stage I Acute Kidney Injury - improving - Nephrology consulted - recommendations appreciated - Creatinine = 1.35 -> 1.28 -> 1.39 -> 1.43 -> 1.60 -> 1.43 -> 1.22 -> 1.27 -> 1.11 -> 1.05 - Urinalysis = unremarkable - Renal ultrasound = "unremarkable renal sonogram. No evidence of hydronephros is." - IV fluids per Neph - Monitor creatinine and urine output - Renally dose medications # Type II Diabetes Mellitus - Correction scale insulin Gerardo Maldonado M.D.
[2022-09-01] MEDS ORDERED: carvediloL 3.125 MG TAB PO SCH (11:30)
[2022-09-01 13:02] LABS: Magnesium 2.4 mg/dL (1.6-2.4); Potassium 4.4 mEq/L (3.5-5.1)
[2022-09-01 15:38] LABS: Potassium 4.3 mEq/L (3.5-5.1)
[2022-09-01 17:47] LABS: Potassium 4.5 mEq/L (3.5-5.1)
[2022-09-01] MEDS ORDERED: NA CHLORIDE 0.9% 1,000 ML IV SCH (20:00)
[2022-09-01] MEDS ORDERED: SODIUM CHLORIDE 1 GM TAB PO SCH (23:00)
[2022-09-01 23:12] LABS: Potassium 4.4 mEq/L (3.5-5.1)
--- NOTE | 2022-09-02 03:39 | PN ---
Date of Progress Note: 09/01/2022 Chief Complaint: Hyponatremia, prerenal azotemia, volume depletion. Subjective: Patient was admitted to ICU because of severe hyponatremia. Sodium level was 121. Gluc ose done at same time was 130. The patient is a 66-year-old woman with history of hypertension, non- insulin dependent diabetes mellitus. She came to the hospital because of nausea and vomiting of 3 da ys' duration prior to this admission. She was evaluated in the emergency room, was found to have sig nificant hyponatremia. Sodium level was 121, chloride 90, creatinine 1.35, GFR 43, glucose 130. Hem oglobin 10.2. The patient underwent workup in the emergency room and CT scan of aorta with IV contra st administered to rule out dissection. It showed thickening of the stomach proximal and small intes chyna suggestive of gastroenteritis. The patient was started on IV fluids in the emergency room and s odium level improved from 121 to 128. Nephrology consultation was requested for decreased urine outp ut, acute kidney injury as well as presence of hyponatremia. Patient has history of diabetes mellitu s and was taking metformin. Metformin currently is on hold due to acute on chronic kidney injury. T he patient was treated for hypertension with Losartan and HCTZ prior to this admission. Currently, H CTZ is on hold. The patient is on sodium chloride tablets, and IV normal saline to control hyponatre concetta. Sodium level has been fluctuating because the patient has multifactorial hyponatremia and prima rily, she was treated with normal saline. Subsequently, when she was over correcting hyponatremia, s he was started on D5W, although the D5W infusion did not slow down over correction and patient receiv ed DDAVP. This morning, the patient received sodium chloride tablets and subsequently, sodium level improved from 121 to 124. Review of Systems: Patient denies complaints. Physical Examination: Lungs: Clear to auscultation bilaterally. Heart: S1-S2. Abdomen: Soft. Extremities: Trace edema. Impression And Plan: 1.Nausea and vomiting due to enteritis, moderately severe hyponatremia. Patient was treated with no rmal saline for presumptive hypovolemia. Sodium level has improved from 121 to 128 with overly rapid overcorrection curve and IV fluids were changed to D5W. Patient currently is on normal saline and s odium chloride tablet. Plan is to re-evaluate lab work and adjust treatment accordingly. Patient is not a candidate HCT because it may cause severe hyponatremia in this particular patient. 2.Diabetes mellitus. Monitor blood glucose. Continue insulin according to sliding scale. 3.Prerenal azotemia. Patient is on normal saline after IV contrast exposure. Continue normal salin e and Mucomyst. EB/MODL Voice ID: [id number] Report ID: [id number]
[2022-09-02 06:36] LABS: Potassium 4.2 mEq/L (3.5-5.1)
[2022-09-02] MEDS ORDERED: D5W 1,000 ML IV SCH (07:03)
[2022-09-02] MEDS ORDERED: DESMOPRESSIN 4 MCG/ML AMP IV ONE (07:15)
[2022-09-02] MEDS: INSULIN -REGULAR HUMAN 50 UNIT/0.5 ML ML SQ SCH ×4 (07:30→20:54)
[2022-09-02] MEDS: ENOXAPARIN 40 MG/0.4 ML SQ SCH (07:58)
[2022-09-02] MEDS: HYDRALAZINE HCL 20 MG/ML VIAL IV PRN (08:00)
[2022-09-02] MEDS: AMLODIPINE 2.5 MG TAB PO SCH (08:02)
[2022-09-02] MEDS: PANTOPRAZOLE 40 MG INJ IVP SCH (08:02)
[2022-09-02 12:21] LABS: Potassium 4.2 mEq/L (3.5-5.1)
--- NOTE | 2022-09-02 13:45 | RAD REPORT ---
EXAM DESCRIPTION: CT - Angio Aorta For Dissection - 08/30/2022 5:49 am CLINICAL HISTORY: HTN, abd pain, vomiting COMPARISON: None Available. TECHNIQUE: CTA of the chest, abdomen and pelvis performed following IV administration of iodinated c ontrast. 3-D/MIP reformatted imaging available. This exam was performed according to our departmental dose-optimization program, which includes automated exposure control, adjustment of the mA and/or kV according to patient size and/or use of iterative reconstruction technique. FINDINGS: Chest: Thyroid: No abnormalities of the visualized thyroid. Great Vessels: Great vessels have normal anatomic configuration. Thoracic Aorta: Normal caliber thoracic aorta with mild atherosclerotic plaque. No dissection. Pulmonary arteries: No filling defects identified. Heart: Coronary artery atherosclerosis. No cardiomegaly. Lymph Nodes: No enlarged mediastinal lymph nodes identified. Esophagus: No abnormalities of the esophagus identified Other: No additional findings. Lungs: No airspace opacities identified. Pleura: No pleural effusion or pneumothorax. Trachea/Airways: No abnormalities of the visualized trachea or airways. Abdomen: Liver: The liver has normal size and decreased density. No intrahepatic mass or biliary dilatation. Gallbladder: No calcified gallstones. Spleen, Pancreas, and Adrenal Glands: The spleen, pancreas, and adrenal glands are unremarkable. Kidneys: The kidneys have normal size and contour without evidence of solid mass or hydronephrosis. Vasculature: Aortoiliac atherosclerosis. Normal caliber abdominal aorta with straight line flow into the common iliac, external iliac, common femoral, proximal superficial femoral arteries. The visceral and renal arteries are patent The portal vein is patent. The proximal visceral and renal arteries are patent. Stomach: Mild wall thickening of the stomach. Other: No free intraperitoneal air. No free fluid or lymphadenopathy. Pelvis: Bladder: Urinary bladder is unremarkable. Bowel: No dilated loops of large or small bowel. Wall thickening of proximal small bowel. Scattered diverticula of the colon. Appendix: Normal appendix. Pelvis: Uterus is not enlarged. Bones: Multilevel endplate spondylosis. Chronic compression deformity of L4. IMPRESSION: 1. No evidence of aortic dissection or aneurysm. No pulmonary embolus. 2. Wall thickening of the stomach and proximal small bowel. These findings could be seen with nonsp ecific gastroenteritis. 3. Coronary artery atherosclerosis. 4. Hepatic steatosis. 5. Diverticulosis without evidence of acute diverticulitis. Electronically signed by: Chente Rivera 08/30/2022 3:07 AM CDT Due to temporary technical issues with the PACS/Fluency reporting system, reports are being signed by the in house radiologist without review as a courtesy to ensure prompt reporting. The interpreting r adiologist is fully responsible for the content of the report.
--- NOTE | 2022-09-02 13:48 | RAD REPORT ---
EXAM DESCRIPTION: CT - Head Brain Wo Cont - 08/30/2022 5:47 am CLINICAL HISTORY: HTN, vomiting COMPARISON: None available TECHNIQUE: Axial CT of the head obtained from the skull apex to the skull base without contrast. Thi s exam was performed according to our departmental dose-optimization program, which includes automate d exposure control, adjustment of the mA and/or kV according to patient size and/or use of iterative reconstruction technique. FINDINGS: No acute intracranial hemorrhage identified. No mass, mass effect, shift of the midline, a bnormal extra-axial fluid collection or CT evidence of acute ischemic change identified. The ventricu lar system and sulcal spaces are mildly enlarged compatible with mild cerebral atrophy. Scattered a reas of hypodensity throughout the supratentorial white matter are nonspecific and may be related to chronic small vessel ischemic change. The visualized paranasal sinuses and mastoid air cells are well aerated. No skull fracture identifi ed. Visualized orbits and globes are unremarkable. Atherosclerotic calcification of the intracranial internal carotid and vertebral arteries. IMPRESSION: 1. No acute intracranial abnormality by CT criteria. Electronically signed by: Chente Rivera 08/30/2022 2:59 AM CDT Due to temporary technical issues with the PACS/Fluency reporting system, reports are being signed by the in house radiologist without review as a courtesy to ensure prompt reporting. The interpreting r adiologist is fully responsible for the content of the report.
--- NOTE | 2022-09-02 14:07 | RAD REPORT ---
EXAM DESCRIPTION: RAD - Chest Single View - 08/29/2022 11:39 pm CLINICAL HISTORY: The patient is 66 years old and is Female; PALPITATIONS [facility] MAIN TECHNIQUE: Frontal view of the chest. COMPARISON: No relevant prior studies available. FINDINGS: LUNGS: Unremarkable. No consolidation. PLEURAL SPACE: Unremarkable. No pleural effusion. No pneumothorax. HEART: Unremarkable. No cardiomegaly. MEDIASTINUM: Unremarkable. BONES/JOINTS: Unremarkable. No acute osseous abnormality. IMPRESSION: No acute cardiopulmonary abnormality. Electronically signed by: Rosalio Jackson MD 08/29/2022 11:52 PM CDT Due to temporary technical issues with the PACS/Fluency reporting system, reports are being signed by the in house radiologist without review as a courtesy to ensure prompt reporting. The interpreting r adiologist is fully responsible for the content of the report.
--- NOTE | 2022-09-02 16:59 | PN ---
Date of Progress Note: 09/02/2022 Subjective: The patient was admitted with hyponatremia. Sodium was down to 121. Patient had over-correction to 128 in short. For that reason, the patient received DDAVP 2 doses. Currently sodium maintained down to 127 on the D5 150 per hour. Physical Examination: Vital Signs: When I saw the patient; blood pressure 141/59, pulse of 90, afebrile. Chest: Clear to auscultation. Heart: S1, S2. Regular. Abdomen: Soft, nontender. Extremity: No edema. Neurologic: Alert. No focality. Laboratory Data: Dated today at 11 o'clock; sodium 127, potassium 4.2, bicarb 22, BUN 14, creatinine 1.3, calcium 8.1. Urine osmolality 217 and urine sodium 43. Current Medications: 1. The patient on D5 at 150. 2. The patient received 2 mcg of DDAVP. 3. Amlodipine 2.5. 4. Hydralazine p.r.n. 5. Pantoprazole. 6. Melatonin. 7. Magnesium oxide. Assessment And Plan: 1. Hyponatremia, over correction. Currently looked to me from the last 24 hours in appropriate rise. I am going to go ahead and decrease IV fluid to 50 per hour and we will monitor the patient. Hold on any DDAVP for the time being and I am going to go ahead and resume salt tablet and we will follow up the patient closely. 2. Hypertension, controlled, optimal. Continue current treatment. 3. Acute kidney injury secondary to hypertension. The patient is still on the baseline. Obstructive uropathy has been ruled out. Mostly secondary to hypertension nephrosclerosis. We will continue to monitor. 4. Chronic kidney disease, small sized kidney 8.3/8.4, stable. We will monitor. I am going to start the patient on losartan for kidney protection and we will follow up. time spend exam the patient face to face , reviewing the DATA lab and Radiology, placing the order, discussing the case with the patient ,reviewing the care plan with athletic team physician including the nursing staff , discussing with the hospitalist >35 min STEVEN/GABRIELLE Voice ID: [id number] Report ID: [id number] [facility] CENTEROniel
--- NOTE | 2022-09-02 17:45 | P.PN ---
Subjective Date of Service: 09/02/22 Chief Complaint: Hyponatremia diarrhea vomiting Ms. Adriana Day is Algerian-speaking only. The following history was obtained with the assistance of [employer] certified [place]ian-[place] telephone claims representative, Ms. Akers, (ID# [id number]). No acute events overnight. She states that she well this morning. She denies any concerns. Her sodium slightly overcorrected this morning, so she was given desmopressin by Nephrology. She denies any headaches, dizziness, lightheadedness, chest pain, palpitations, or shortness of breath. Review of Systems 10-point ROS is otherwise unremarkable Physical Examination - Vital Signs Temperature: 98.8 F Blood Pressure: 140/66 Pulse: 77 Respirations: 16 Pulse Ox (%): 100 Assessment And Plan - Plan - Physical Exam General: Alert, In no apparent distress, Oriented x3 HEENT: Atraumatic, Mucous membr. moist/pink, EOMI, Sclerae nonicteric Neck: JVD not distended Respiratory: Clear to auscultation bilaterally, Normal air movement Cardiovascular: No edema, Regular rate/rhythm, No murmurs Gastrointestinal: Normal bowel sounds, Soft, Non-distended, No tenderness Musculoskeletal: No clubbing Integumentary: No rashes Neurological: Normal speech, Normal affect # Hypovolemic Hyponatremia secondary to Acute Gastroenteritis and Hydrochlorothiazide Use She was treated with IV fluids and had rapid improvement in her sodium levels. Nephrology was consulted and, to prevent central pontine myelinolysis, she was given desmopressin. Her sodium is now persistently low. - Radiology: - Chest x-ray = " no acute cardiopulmonary abnormality." - CT head = " no acute intracranial abnormality by CT criteria." - CT aorta dissection protocol = "1. No evidence of aortic dissection or aneurysm. No pulmonary embolus. 2. Wall thickening of the stomach and proximal small bowel. These findings could be seen with nonspecific gastroenteritis. 3. Coronary artery atherosclerosis. 4. Hepatic steatosis. 5. Diverticulosis without evidence of acute diverticulitis." - Nephrology consulted and she was evaluated by Dr. Merino - recommendations appreciated - Sodium trend: 121 -> 125 -> 126 -> 128 -> 125 -> 124 -> 122 -> 121 -> 122 -> 121 -> 120 -> 124 -> 123 -> 131 -> 129 - IV fluids and desmopressin per Nephrology - Serial BMP # Hypertensive Urgency - Nephrology consulted - recommendations appreciated - Continue amlodipine, PRN hydralazine # KDIGO Stage I Acute Kidney Injury - improving - Nephrology consulted - recommendations appreciated - Urinalysis = unremarkable - Renal ultrasound = "unremarkable renal sonogram. No evidence of hydronephrosis." - IV fluids per Neph - Monitor creatinine and urine output - Renally dose medications # Type II Diabetes Mellitus - Correction scale insulin Gerardo Maldonado M.D.
[2022-09-02 18:24] LABS: Potassium 4.1 mEq/L (3.5-5.1)
[2022-09-02] MEDS ORDERED: SODIUM CHLORIDE 1 GM TAB PO ONE (19:06)
[2022-09-02] MEDS: MELATONIN 5 MG TABLET PO PRN (20:53)
[2022-09-02 23:24] LABS: Potassium 4.6 mEq/L (3.5-5.1)
[2022-09-03] MEDS ORDERED: FUROSEMIDE 20 MG/ 2ML VIAL IV ONE (01:14)
[2022-09-03 02:59] LABS: Renal Epithelial <5 /HPF (None Seen); Specific Gravity 1.012 (1.005-1.030); Urine Bacteria None Seen /HPF (<20); Urine Bilirubin NEGATIVE (Negative); Urine Blood Negative (Negative); Urine Clarity Clear (Clear); Urine Color Colorless (Yellow); Urine Glucose NEGATIVE (Negative); Urine Mucus Slight /HPF (None Seen); Urine Protein TRACE (Negative); Urine RBC None Seen /HPF (None Seen); Urine Urobilinogen Normal (Normal)
[2022-09-03 06:41] LABS: Albumin 3.3 g/dL (3.4-5.0); Magnesium 1.5 mg/dL (1.6-2.4); Phosphorus 3.5 mg/dL (2.5-4.9); Uric Acid 5.4 mg/dL (2.6-6.0)
[2022-09-03] MEDS: INSULIN -REGULAR HUMAN 50 UNIT/0.5 ML ML SQ SCH ×4 (07:30→20:17)
[2022-09-03] MEDS ORDERED: Magnesium Sulfate 2gm IVPB 2 G/50 ML BAG IV ONE (07:42)
[2022-09-03] MEDS: LOSARTAN POTASSIUM 50 MG TABLET PO SCH (08:49)
[2022-09-03] MEDS: PANTOPRAZOLE 40 MG INJ IVP SCH (08:49)
[2022-09-03] MEDS: AMLODIPINE 2.5 MG TAB PO SCH (08:51)
[2022-09-03] MEDS: ENOXAPARIN 40 MG/0.4 ML SQ SCH (08:52)
--- NOTE | 2022-09-03 11:52 | PN ---
Date of Progress Note: 09/03/2022 Subjective: The patient was admitted with hyponatremia, had over-correction. The patient treated with DDAVP. The patient plateaued on the last 24 hours. IV fluid over the night has been discontinued. The patient given single dose of Lasix. Sodium plateaued. Physical Examination: Vital Signs: Blood pressure 160/68, pulse of 76, afebrile. The patient had good urine output. Chest: Clear to auscultation. Heart: S1, S2. Regular. Abdomen: Soft, nontender. Extremities: No edema. Neurologic: Alert. No focality. Laboratory Data: Hemoglobin 9.1. Sodium 127, potassium 4, bicarb 25, BUN 20, creatinine 1.1, GFR of 50, uric acid 5.4, calcium 8.3, phosphorus 3.5, magnesium 1.5, albumin 3.3. Current Medications: The patient on include Lasix 20 mg received yesterday, amlodipine 2.5, losartan 25 mg, pantoprazole, magnesium sulfate. Assessment And Plan: 1. Chronic kidney disease, stage 3 secondary to hypertension nephrosclerosis, stable on the baseline, small size kidney 8.3 x 8.4. We will continue to monitor. 2. 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 We will increase salt tablet and add Lasix and we will follow up the patient closely. We will repeat the lab in the next 6 hours. Keep holding DDAVP, keep holding any IV fluid. 3. Hypertension, controlled, optimal. Continue current medications. 4. Acute kidney injury secondary to prerenal, recovered, plateaued. We will continue to monitor. 5. Hypomagnesemia. We will supplement. time spend exam the patient face to face , reviewing the DATA lab and Radiology, placing the order, discussing the case with the patient ,reviewing the care plan with fast food team member including the nursing staff , discussing with the hospitalist >35 min STEVEN/GABRIELLE Voice ID: [id number] Report ID: [id number] [email or web address]
[2022-09-03 14:14] LABS: Potassium 4.1 mEq/L (3.5-5.1)
[2022-09-03] MEDS: SODIUM CHLORIDE 1 GM TAB PO SCH ×2 (14:57→20:17)
--- NOTE | 2022-09-03 18:17 | P.PN ---
Subjective Date of Service: 09/03/22 Chief Complaint: Hyponatremia diarrhea vomiting Ms. Adriana Day is Moldovan-speaking only. The following history was obtained with the assistance of [employer] certified [place] circular knife cutter machine, Ms. Castañeda, (ID# [id number]). No acute events overnight. Sodium is gradually improving. Spoke with Dr. Ortiz - he is planning to start sodium tablets. She denies any headaches, dizziness, lightheadedness, chest pain, palpitations, or shortness of breath. Review of Systems 10-point ROS is otherwise unremarkable Physical Examination - Vital Signs Temperature: 97.6 F Blood Pressure: 169/77 Pulse: 78 Respirations: 16 Pulse Ox (%): 99 Assessment And Plan - Plan - Physical Exam General: Alert, In no apparent distress, Oriented x3 HEENT: Atraumatic, Mucous membr. moist/pink, EOMI, Sclerae nonicteric Neck: JVD not distended Respiratory: Clear to auscultation bilaterally, Normal air movement Cardiovascular: No edema, Regular rate/rhythm, No murmurs Gastrointestinal: Normal bowel sounds, Soft, Non-distended, No tenderness Musculoskeletal: No clubbing Integumentary: No rashes Neurological: Normal speech, Normal affect # Hypovolemic Hyponatremia secondary to Acute Gastroenteritis and Hydrochlorothiazide Use She was treated with IV fluids and had rapid improvement in her sodium levels. Nephrology was consulted and, to prevent central pontine myelinolysis, she was given desmopressin. Her sodium is now persistently low. - Radiology: - Chest x-ray = " no acute cardiopulmonary abnormality." - CT head = " no acute intracranial abnormality by CT criteria." - CT aorta dissection protocol = "1. No evidence of aortic dissection or aneurysm. No pulmonary embolus. 2. Wall thickening of the stomach and proximal small bowel. These findings could be seen with nonspecific gastroenteritis. 3. Coronary artery atherosclerosis. 4. Hepatic steatosis. 5. Diverticulosis without evidence of acute diverticulitis." - Nephrology consulted and spoke with Dr. Ortiz - recommendations appreciated - Sodium trend: 121 -> 125 -> 126 -> 128 -> 125 -> 124 -> 122 -> 121 -> 122 -> 121 -> 120 -> 124 -> 123 -> 131 -> 129 -> 127 -> 127 -> 126 -> 127 - Management per Nephrology - Serial BMP # Hypertensive Urgency - Nephrology consulted and spoke with Dr. Ortiz - recommendations appreciated - Continue amlodipine, PRN hydralazine # KDIGO Stage I Acute Kidney Injury - improving - Nephrology consulted and spoke with Dr. Ortiz - recommendations appreciated - Urinalysis = unremarkable - Renal ultrasound = "unremarkable renal sonogram. No evidence of hydronephrosis." - IV fluids per Neph - Monitor creatinine and urine output - Renally dose medications # Type II Diabetes Mellitus - Correction scale insulin Gerardo Maldonado M.D.
[2022-09-03] MEDS: HYDRALAZINE HCL 20 MG/ML VIAL IV PRN (20:18)
[2022-09-03] MEDS: MELATONIN 5 MG TABLET PO PRN (20:18)
[2022-09-04 00:39] VITALS: O2SAT 98
[2022-09-04 04:55] LABS: Albumin 3.2 g/dL (3.4-5.0); Phosphorus 4.1 mg/dL (2.5-4.9)
[2022-09-04 04:57] LABS: Potassium 4.4 mEq/L (3.5-5.1)
[2022-09-04] MEDS: INSULIN -REGULAR HUMAN 50 UNIT/0.5 ML ML SQ SCH ×5 (07:30→20:42)
[2022-09-04] MEDS: AMLODIPINE 2.5 MG TAB PO SCH (09:19)
[2022-09-04] MEDS: FUROSEMIDE 20 MG/ 2ML VIAL IV SCH (09:19)
[2022-09-04] MEDS: SODIUM CHLORIDE 1 GM TAB PO SCH ×3 (09:19→20:17)
[2022-09-04] MEDS: PANTOPRAZOLE 40 MG INJ IVP SCH (09:19)
[2022-09-04] MEDS: LOSARTAN POTASSIUM 50 MG TABLET PO SCH (09:19)
[2022-09-04] MEDS: ENOXAPARIN 40 MG/0.4 ML SQ SCH (09:20)
--- NOTE | 2022-09-04 12:09 | PN ---
Date of Progress Note: 09/04/2022 Subjective: Patient was admitted with hyponatremia, acute kidney injury on chronic kidney disease. Patient had overcorrection, for that reason patient was given DDAVP and IV fluid, which was discontin ued for the last 36 hours. Yesterday, we started the patient on salt tablet and Lasix. Sodium start ed being stabilized. Physical Examination: Vital Signs: When I saw the patient; blood pressure of 147/70, pulse of 87, afebrile. Chest: Clear to auscultation. Heart: S1, S2. Systolic murmur. Abdomen: Soft, nontender. Extremities: No edema. Neurologic: Alert. No focality. Laboratory Data: Hemoglobin 9.1, sodium 127, potassium 4.4, bicarb 23, BUN 22, creatinine 1.1. GFR 51. Calcium 8.3, phosphorus 4.1, magnesium of 2. Albumin 3.2, corrected calcium 9. Current Medications: The patient on, includes: 1.Salt tablet g t.i.d. 2.Lovenox. 3.Amlodipine 2.5. 4.Losartan 25. 5.Lasix 20 mg daily. 6.Pantoprazole. 7.Melatonin. Assessment And Plan: 1.Chronic kidney disease, stage 3, secondary to hypertension, nephrosclerosis, small sized kidney, s table. Continue current medications. We started the patient on ROMMEL inhibitor yesterday. 2.Hyponatremia, status post overcorrection secondary to SIADH. Start the patient on Lasix and salt tablet. We will increase salt tablet. Patient does not have any neurological symptoms. Appropriate rise on the sodium. Patient cleared from the renal standpoint for discharge planning to continue on salt tablet 2 g t.i.d., Lasix 20 mg daily and to follow up in the office in 4 weeks. 3.Hypertension, controlled, optimal. Continue current treatment. 4.Acute kidney injury secondary to prerenal, recovered, back to baseline. 5.Hypomagnesemia, status post supplement, recovered, resolved. STEVEN/GABRIELLE Voice ID: [id number] Report ID: [id number]
--- NOTE | 2022-09-04 15:57 | P.PN ---
Subjective Date of Service: 09/04/22 Chief Complaint: Hyponatremia diarrhea vomiting Ms. Adriana Day is Chadian-speaking only. The following history was obtained with the assistance of [employer] certified [place] germ drier, Ms. Alcaraz, (ID# [id number]). No acute events overnight. Sodium has stabilized, but remains low. Plan to increase sodium tablet dosing per Nephrology. Ideally, would like a sodium level of at least 130 prior to discharge. She denies any symptoms this morning. She denies any headaches, dizziness, lightheadedness, chest pain, palpitations, or shortness of breath. Review of Systems 10-point ROS is otherwise unremarkable Physical Examination - Vital Signs Temperature: 98.1 F Blood Pressure: 150/66 Pulse: 95 Respirations: 16 Pulse Ox (%): 99 Assessment And Plan - Plan - Physical Exam General: Alert, In no apparent distress, Oriented x3 HEENT: Atraumatic, EOMI, Sclerae nonicteric Neck: JVD not distended Respiratory: Clear to auscultation bilaterally, Normal air movement Cardiovascular: No edema, Regular rate/rhythm, No murmurs Gastrointestinal: Soft, Non-distended, No tenderness Musculoskeletal: No clubbing Integumentary: No rashes Neurological: Normal speech, Normal affect # Hypovolemic Hyponatremia secondary to Acute Gastroenteritis and Hydrochlorothiazide Use She was treated with IV fluids and had rapid improvement in her sodium levels. Nephrology was consulted and, to prevent central pontine myelinolysis, she was given desmopressin. Her sodium is now persistently low. - Radiology: - Chest x-ray = " no acute cardiopulmonary abnormality." - CT head = " no acute intracranial abnormality by CT criteria." - CT aorta dissection protocol = "1. No evidence of aortic dissection or aneurysm. No pulmonary embolus. 2. Wall thickening of the stomach and proximal small bowel. These findings could be seen with nonspecific gastroenteritis. 3. Coronary artery atherosclerosis. 4. Hepatic steatosis. 5. Diverticulosis without evidence of acute diverticulitis." - Nephrology consulted - recommendations appreciated - Sodium trend: 121 -> 125 -> 126 -> 128 -> 125 -> 124 -> 122 -> 121 -> 122 -> 121 -> 120 -> 124 -> 123 -> 131 -> 129 -> 127 -> 127 -> 126 -> 127 -> 126 -> 127 - Sodium tablets and furosemide per Nephrology - Serial BMP # Hypertensive Urgency - Nephrology consulted - recommendations appreciated - Continue amlodipine, PRN hydralazine # KDIGO Stage I Acute Kidney Injury - improving - Nephrology consulted - recommendations appreciated - Urinalysis = unremarkable - Renal ultrasound = "unremarkable renal sonogram. No evidence of hydronephrosis." - IV fluids per Neph - Monitor creatinine and urine output - Renally dose medications # Type II Diabetes Mellitus - Correction scale insulin Gerardo Maldonado M.D.
[2022-09-05 04:08] LABS: Albumin 3.4 g/dL (3.4-5.0); Magnesium 2.1 mg/dL (1.6-2.4); Phosphorus 4.2 mg/dL (2.5-4.9); Potassium 4.6 mEq/L (3.5-5.1)
[2022-09-05] MEDS: INSULIN -REGULAR HUMAN 50 UNIT/0.5 ML ML SQ SCH ×3 (07:30→16:13)
[2022-09-05] MEDS: LOSARTAN POTASSIUM 50 MG TABLET PO SCH (08:24)
[2022-09-05] MEDS: PANTOPRAZOLE 40 MG INJ IVP SCH (08:24)
[2022-09-05] MEDS: AMLODIPINE 2.5 MG TAB PO SCH (08:24)
[2022-09-05] MEDS: SODIUM CHLORIDE 1 GM TAB PO SCH ×2 (08:24→17:12)
[2022-09-05] MEDS: FUROSEMIDE 20 MG/ 2ML VIAL IV SCH (08:24)
[2022-09-05] MEDS: ENOXAPARIN 40 MG/0.4 ML SQ SCH (08:25)
--- NOTE | 2022-09-05 14:47 | P.PN ---
Subjective Date of Service: 09/05/22 Chief Complaint: Hyponatremia diarrhea vomiting Subjective: No new changes Physical Examination - Vital Signs Temperature: 98 F Blood Pressure: 139/61 Pulse: 83 Respirations: 16 Pulse Ox (%): 98 - Physical Exam General: Other (chronically ill appearing) HEENT: Atraumatic, Normocephalic Neck: Supple, JVD not distended Respiratory: Other (Symmetric chest expansion) Cardiovascular: No rubs, No murmurs Gastrointestinal: Soft and benign, No guarding Integumentary: No warmth Urinary: Other (No bladder distention) External genitalia: Deferred Rectal: Deferred Assessment And Plan - Plan 1. Chronic kidney disease, stage 3, secondary to hypertension, nephrosclerosis, small sized kidney, stable. Continue current medications. Continue ACEI. Monitor renal panel. 2. Hyponatremia. Serum Na improved to 134. Continue on salt tablet 2 g t.i.d., Lasix 20 mg daily and to follow up in the office in 4 weeks. 3. Hypertension, controlled, optimal. Continue current rx regimen. 4. Acute kidney injury secondary to prerenal. Encourage liberal po fluid intake at least 2L/day. 5. Hypomagnesemia, status post supplement, recovered, resolved.
[2022-09-05 18:41] LABS: Absolute Lymphocytes (CBC) 1.9 K/uL (0.7-4.9); Hematocrit 27.2 % (36.0-45.0); Lymphocytes % 28.2 % (15.3-44.8); MCV 87.7 fL (80-100); MPV 8.2 fL (7.6-11.3)
[2022-09-05 18:49] LABS: Potassium 5.2 mEq/L (3.5-5.1)
[2022-09-06] MEDS ORDERED: ENOXAPARIN 30 MG/0.3 ML SQ SCH (09:00)
[2022-09-06 09:39] VITALS: BP 139/61; TEMP 98
== END 2022-09-05 20:05 | disposition home or self-care (01) | DRG 644 ==
LOC: ER 22:55 → 3RD-ICU 08-30 03:25 → 4TH 09-01 02:54
PROVIDERS: ADMIT Internal Medicine Sleep Medicine; ATTEND Hospitalist
DX: E22.2 Syndrome of inappropriate secretion of antidiuretic hormone (principal); N17.9 Acute kidney failure, unspecified; K52.9 Noninfective gastroenteritis and colitis, unspecified; I12.9 Hypertensive chronic kidney disease with stage 1 through stage 4 chronic kidney disease, or unspecified chronic kidney disease; N18.2 Chronic kidney disease, stage 2 (mild); E11.22 Type 2 diabetes mellitus with diabetic chronic kidney disease; E86.0 Dehydration; I16.0 Hypertensive urgency; E83.42 Hypomagnesemia; D64.9 Anemia, unspecified; T50.2X5A Adverse effect of carbonic-anhydrase inhibitors, benzothiadiazides and other diuretics, initial encounter; R79.89 Other specified abnormal findings of blood chemistry; Z79.84 Long term (current) use of oral hypoglycemic drugs; Z79.899 Other long term (current) drug therapy
CPT/HCPCS: 36415; 70450; 71045; 71275; 74175; 76770; 80048; 80053; 80069; 81001; 81003; 82570; 82947; 83690; 83735; 83880; 83930; 83935; 84100; 84132; 84300; 84439; 84443; 84484; 84550; 85025; 87804; 93005; 99285; C9113; J0360; J1650; J1815; J1940; J2405; J2597; J3475; J7030; Q9967; U0003